=== PATIENT | female | born 1995 | race Caucasian/White ===

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

== ENCOUNTER 2017-06-11 11:02 | Emergency (ER) | payer OTHER ==
--- NOTE | 2017-06-11 12:06 | UC ---
Skin Complaint HPI - HPI Summary HPI Summary: 21 y/o female presents to the urgent care c/o b/l legs with a rash taht itches a lot and painful to touch taht started 3 days ago over night. PT just realized that now she has more in her LF elbow and back. She states she shave her legs last Sunday. Then Sunday morning she noticed the red bumps, she was itching all day. Pt has not taking anything to alleviate symptoms. Pt denies fever, SOB , chest pain, N/V/D, abdominal pain, CONTE, Hx of MRSA. - History of Current Complaint Time Seen by Provider: 06/11/17 12:02 Stated Complaint: SKIN COMPLAINT Hx Obtained From: Patient Hx Last Menstrual Period: has implanon ?: No Onset/Duration: Gradual Onset, Lasting Days - 3 days, Still Present Skin Exposure Onset/Duration: Days Ago - 3 Timing: Constant Onset Severity: Mild Current Severity: Moderate Pain Intensity: 2 Pain Scale Used: 0-10 Numeric Location: Diffuse - B.L legs, LF elbow and back Character: Swelling, Pruritus, Redness, Raised Aggravating Factor(s): Touch Alleviating Factor(s): Nothing Associated Signs & Symptoms: Positive: Tenderness. Negative: Nausea, Vomiting, Numbness, Fever Related History: Possible Reaction to: Insect - Allergy/Home Medications Allergies/Adverse Reactions: Allergies Allergy/AdvReac Type Severity Reaction Status Date / Time No Known Allergies Allergy Verified 06/11/17 12:04 Review of Systems Skin: Rash - red and raised on B/L legs, LF elbow and back Eyes: Negative ENT: Negative Respiratory: Negative Cardiovascular: Negative Gastrointestinal: Negative Genitourinary: Negative Motor: Negative Neurovascular: Negative Musculoskeletal: Negative Neurological: Negative Psychological: Negative Is Patient Immunocompromised?: No All Other Systems Reviewed And Are Negative: Yes PMH/Surg Hx/FS Hx/Imm Hx Previously Healthy: Yes - PT denies PMHX - Surgical History Surgical History: None - Family History Known Family History: Positive: Hypertension Family History: Hypothyrodism - Social History Occupation: Employed Full-time Lives: With Family Alcohol Use: Rare Substance Use Type: None Substance Use Comment - Amount & Last Used: 02/13/15 Smoking Status (MU): Light Every Day Tobacco Smoker Amount Used/How Often: 1/2 pack Length of Time of Smoking/Using Tobacco: 1 year Have You Smoked in the Last Year: No - Immunization History Most Recent Influenza Vaccination: none Vaccination Up to Date: Yes Physical Exam Triage Information Reviewed: Yes - Additional Comments Vital Signs Reviewed: Yes Eyes: Positive: Conjunctiva Clear - PERRLA, EOMI ENT: Positive: Normal ENT inspection, Hearing grossly normal, Pharynx normal, TMs normal Neck: Positive: Supple, Nontender, No Lymphadenopathy Respiratory: Positive: Chest nontender, Lungs clear, Normal breath sounds Cardiovascular: Positive: RRR, No Murmur, Pulses Normal Abdomen Description: Positive: Nontender, No Organomegaly, Soft. Negative: CVA Tenderness (R), CVA Tenderness (L) Bowel Sounds: Positive: Present Musculoskeletal: Positive: Strength Intact, ROM Intact, No Edema Neurological Exam: Normal Psychological Exam: Normal Skin: Positive: rashes B/l legs with multiple scattered erythematous papules some with central yellowish discharged, some with signs of scoriation, tender to touch, warm and raised. Similar papules in the LF elbow and back Course/Dx - Course Course Of Treatment: 21 y/o female presents to the urgent care c/o b/l legs with a rash taht itches a lot and painful to touch taht started 3 days ago over night. PT just realized that now she has more in her LF elbow and back. She states she shave her legs last Sunday. Then Sunday morning she noticed the red bumps, she was itching all day. Pt has not taking anything to alleviate symptoms. Pt denies fever, SOB, chest pain, N/V/D, abdominal pain, CONTE, Hx of MRSA.HX obtained. Pt with unspecified rash. Probably bed bugs with bacterial co- infection since some papules have yellowish drainage. Pt Rx Keflex PO, Benadryl Po for pruritus. Advised to wash all clothing and beddings with hot water. Pt educated on bed bugs. Pt understood and agreed with plan of care. - Differential Diagnoses - Skin Complaint Differential Diagnoses: Abscess, Cellulitis, Contact Dermatitis, Eczema, Local Allergic Reaction, MRSA, Tick Born Illness, Urticaria, Other - bed bugs, folliculitis - Diagnoses Provider Diagnoses: 1- Unpecified rash Discharge - Discharge Plan Condition: Stable Disposition: HOME Prescriptions: Bacitracin OINTMENT* 1 applic TOPICAL TID #1 tube Cephalexin CAP* [Keflex CAP*] 500 mg PO TID #21 cap diPHENhydraMINE PO* [Benadryl PO 25 MG TAB*] 25 mg PO TID PRN #15 tab PRN Reason: Pruritis Patient Education Materials: Acute Rash (ED), Bed Bugs (ED) Forms: *Work Release Referrals: JOSE Sidhu [Primary Care Provider] - If Needed Additional Instructions: 1-Please apply medication as directed and take full course of antibiotic for the the co-infected rash 2-Please wash all clothing and beddings with hot water. 3-If symptoms do not improve or worsen please f/u with your PCP or return to the urgent care for further evaluation and treatment.
[2017-06-11 12:10] VITALS: BP 123/79
== END 2017-06-11 12:38 | disposition home or self-care (01) ==
LOC: UCCORT 11:02
DX: R21 Rash and other nonspecific skin eruption (principal); Z87.891 Personal history of nicotine dependence
CPT/HCPCS: 99212; G0463

== ENCOUNTER 2017-06-19 19:20 | Emergency (ER) | payer OTHER ==
[2017-06-19 20:08] VITALS: BP 124/64
--- NOTE | 2017-06-19 20:14 | UC ---
Ear Complaint HPI - HPI Summary HPI Summary: 21 y/o female presents to the urgent care c/o LF ear fullness, dull pain and decrease hearing since yesterday. Pt states pain is mild 3/10. Pt denies sore throat, cough, CONTE, SOB, chest pain N/V/D, dizziness. CONTE, tinnitus. She states she was recently here for a rash which already resolved, She finished taking the ABX about 2 days ago. She has not taking anything to alleviate symptoms. - History of Current Complaint Chief Complaint: UCEar Stated Complaint: EAR COMPLAINT Time Seen by Provider: 06/19/17 20:13 Hx Obtained From: Patient Hx Last Menstrual Period: has nexplanon ?: No Onset/Duration: Gradual Onset, Lasting Days - 2 days Severity Initially: Mild Severity Currently: Mild Pain Intensity: 3 Pain Scale Used: 0-10 Numeric Aggravating Factors: Other - touch Alleviating Factors: Heat Associated Signs/Symptoms: Positive: Hearing Loss - Allergies/Home Medications Allergies/Adverse Reactions: Allergies Allergy/AdvReac Type Severity Reaction Status Date / Time No Known Allergies Allergy Verified 06/11/17 12:04 PMH/Surg Hx/FS Hx/Imm Hx Previously Healthy: Yes - Pt denies PMHX - Surgical History Surgical History: None - Family History Known Family History: Positive: Hypertension Family History: Hypothyrodism - Social History Occupation: Employed Full-time Lives: With Family Alcohol Use: None Substance Use Type: None Substance Use Comment - Amount & Last Used: 02/13/15 Smoking Status (MU): Light Every Day Tobacco Smoker Type: Cigarettes Amount Used/How Often: <1/2 PPD Length of Time of Smoking/Using Tobacco: 1 year Have You Smoked in the Last Year: No - Immunization History Most Recent Influenza Vaccination: none Vaccination Up to Date: Yes Review of Systems Constitutional: Negative Skin: Negative Eyes: Negative ENT: Ear Ache - Left with fullness and hearing loss Respiratory: Negative Cardiovascular: Negative Gastrointestinal: Negative Genitourinary: Negative Motor: Negative Neurovascular: Negative Musculoskeletal: Negative Neurological: Negative Psychological: Negative Is Patient Immunocompromised?: No All Other Systems Reviewed And Are Negative: Yes Physical Exam Triage Information Reviewed: Yes Vital Signs: Initial Vital Signs Temp 98.4 F 06/19/17 20:03 Pulse 89 06/19/17 20:03 Resp 16 06/19/17 20:03 BP 124/64 06/19/17 20:03 Pulse Ox 100 06/19/17 20:03 - Additional Comments Vital signs: reviewed General: weel developed well nourished female w/o any aooarent distress. Skin: [place], warm and dry, B/L arm rash resolving HEENT: -Head: atraumatic, non tender; no scalp dermatitis. -Eyes: sclera and conjunctiva clear, PERRLA, EOMI -Ears: no pre- or postauricular lymphadenopathy or erythema; LF external ear canal with erythema and yellowish purulent discharge, pinna tenderness on palpation, Rt TM WNL, LF external ear canal clear and LF TM WNL. TMs normal w/ out bulging or retraction. Good light reflex. No fluid level, vesicles, or bullae. No perforation. -Nose/Face: erythematous and edematous nasal mucosa with clear rhinorrhea, no frontal or maxillary sinus tender to palpation. -Mouth/Throat: Mucous membrane moist, posterior pharynx clear, no erythema or exudates. Neck: supple, FROM, nontender, no lymphadenopathy, no meningismus. Chest: Clear to auscultation, normal breath sounds Abd: soft, Bowel sounds active, Nontender. Back: no spinal or CVAT Neuro: A&O x4, GCS 15, no focal neuro deficits, normal behavior for age. Ear Complaint Course/Dx - Course Course Of Treatment: 21 y/o female presents to the urgent care c/o LF ear fullness, dull pain and decrease hearing since yesterday. Pt states pain is mild 3/10. Pt denies sore throat, cough, CONTE, SOB, chest pain N/V/D, dizziness. CONTE, tinnitus. She states she was recently here for a rash which already resolved, She finished taking the ABX about 2 days ago. She has not taking anything to alleviate symptoms.Hx obtained. Pt with a left otitis externa on examination. Pt Rx. Cortisporin otic drops. Advised to take ibuprofen PO OTC for pain. If symptoms do not improve or worsen to return to the urgent care or f /u with PCP for further management. Pt understood and agreed with D/C instructions. - Differential Dx/Diagnosis Differential Diagnosis/HQI/PQRI: Barotrauma, Cerumen Impaction, Mastoiditis, Otitis Externa, Otitis Media, Perforated TM, URI, Other - BPPV Provider Diagnoses: 1- Left otitis externa Discharge - Discharge Plan Condition: Stable Disposition: HOME Prescriptions: Neomyc/Polym/HC 1% OTIC SUSP* [Cortisporin Otic Susp 1%*] 4 drop LEFT EAR TID # 1 btl Patient Education Materials: Otitis Externa (ED) Referrals: JOSE Sidhu [Primary Care Provider] - If Needed Additional Instructions: 1-Please apply otic antibiotic on your LF ear as directed. 2-Take ibuprofen PO q6-8hrs for 2 days after meals for pain and decrease inflammation 3-If symptoms do not improve or worsen please f/u with your PCP or return to the urgent care for further evaluation and treatment.
== END 2017-06-19 20:42 | disposition home or self-care (01) ==
LOC: UCCORT 19:20
DX: H60.92 Unspecified otitis externa, left ear (principal); F17.210 Nicotine dependence, cigarettes, uncomplicated
CPT/HCPCS: 99212; G0463

== ENCOUNTER 2017-10-15 12:22 | Emergency (ER) | payer OTHER ==
[2017-10-15 15:51] VITALS: BP 130/82
--- NOTE | 2017-10-15 15:51 | ED ---
Throat Pain/Nasal Congestion - HPI Summary HPI Summary: 22 yr old female with the complaint of nasal congestion, cough and tired. Mild 4/10 frontal headache. No neck stiffness. No fever. The patient has been ill for a couple of days. No fever or chills. The patient has had other people with cough and cold symptoms in the household. No other complaints. - History of Current Complaint Chief Complaint: UCRespiratory Time Seen by Provider: 10/15/17 15:36 - Allergies/Home Medications Allergies/Adverse Reactions: Allergies Allergy/AdvReac Type Severity Reaction Status Date / Time No Known Allergies Allergy Verified 10/15/17 15:50 PMH/Surg Hx/FS Hx/Imm Hx Endocrine/Hematology History: Denies: Hx Diabetes Respiratory History: Denies: Hx Asthma, Hx Chronic Obstructive Pulmonary Disease (COPD) Infectious Disease History: No Infectious Disease History: Denies: Traveled Outside the [place] in Last 30 Days - Family History Known Family History: Positive: Hypertension Family History: Hypothyrodism - Social History Alcohol Use: Rare Substance Use Type: Reports: None Substance Use Comment - Amount & Last Used: 02/13/15 Smoking Status (MU): Heavy Every Day Tobacco Smoker Type: Cigarettes Amount Used/How Often: 1/2 PPD Length of Time of Smoking/Using Tobacco: since age 19 Have You Smoked in the Last Year: No Review of Systems Constitutional: Negative Eyes: Negative ENT: Negative Positive: Cough Gastrointestinal: Negative Musculoskeletal: Negative Skin: Negative All Other Systems Reviewed And Are Negative: Yes Physical Exam Triage Information Reviewed: Yes Vital Signs On Initial Exam: Initial Vitals Temp Pulse Resp BP Pulse Ox 97.8 F 97 16 130/82 100 10/15/17 15:43 10/15/17 15:43 10/15/17 15:43 10/15/17 15:43 10/15/17 15:43 Vital Signs Reviewed: Yes Appearance: Positive: Well-Appearing, No Pain Distress Skin: Positive: Warm Eyes: Positive: EOMI ENT: Positive: Pharynx normal, Nasal congestion, TMs normal Neck: Positive: Nontender Respiratory/Lung Sounds: Positive: Clear to Auscultation, Breath Sounds Present Cardiovascular: Positive: RRR. Negative: Murmur Abdomen Description: Positive: Nontender Musculoskeletal: Positive: Strength/ROM Intact Neurological: Positive: Sensory/Motor Intact, Alert, Oriented to Person Place, Time, CN Intact II-III Psychiatric: Positive: Normal - Boy Coma Scale Best Eye Response: 4 - Spontaneous Best Motor Response: 6 - Obeys Commands Best Verbal Response: 5 - Oriented Coma Scale Total: 15 Diagnostics - Vital Signs Vital Signs Temp Pulse Resp BP Pulse Ox 10/15/17 15:43 97.8 F 97 16 130/82 100 - Laboratory Lab Statement: Any lab studies that have been ordered have been reviewed, and results considered in the medical decision making process. EENT Course/Dx - Course Course Of Treatment: 22 yr old female with cough, runny nose. URI sympotms. Plan dc home. - Diagnoses Provider Diagnoses: Upper respiratory infection Discharge - Discharge Plan Condition: Good Disposition: HOME Patient Education Materials: Upper Respiratory Infection (ED) Forms: *Work Release Referrals: Non Staff,Doctor [Primary Care Provider] - [facility] [Outside]
== END 2017-10-15 15:58 | disposition home or self-care (01) ==
LOC: UCCORT 12:22
DX: J06.9 Acute upper respiratory infection, unspecified (principal); F17.210 Nicotine dependence, cigarettes, uncomplicated
CPT/HCPCS: 99211; G0463

== ENCOUNTER 2018-03-13 11:02 | Emergency (ER) | payer OTHER ==
--- OUTSIDE RECORDS SUMMARY | 2018-03-13 11:30 | XMS REPORT ---
:1995 External Reference #:[id number] [facility] Address [address] [place] [id number] Phone [phone] Care Team Providers Name Role Phone Katelyn Woody MD Primary Care Physician Unavailable Payers Type Date Identification Numbers Payment Provider Subscriber Commercial Policy Number: [id number] [facility] [employer] Name: [employer] Plan [address] PayID: [id number] [place] [address] Medicaid Effective: 2018 PayID: [id number] Medicaid Pe ([facility]) [employer] Expires: 2018 [address] [place] [address] Problems Description No Information Family History Date Family Member(s) Problem(s) Comments General Great Gma throat cancer and Alzheimers (both sides) Father Alive Mother Alive Mother Dislocated discs in back Mother migraines Mother "lumpy breasts" (always begnign) Mother Not Known - Adopted Social History Type Date Description Comments Education Highest level completed, 1 year of college Marital Status Legal Status: Never Cigars Never Smoked Cigars Pipe Never Smoked A Pipe Smokeless Tobacco Never Used Smokeless Tobacco ETOH Use Rarely consumes alcohol Smoking Heavy tobacco smoker (more than 10 cigarettes/day) Recreational Drug Use Denies Drug Use Recreational Drug Use Teaching provided regarding Naloxone/Narcan Training Available At [facility] Tattoo/Piercing Tattoos professionally done Condom Use Never Allergies, Adverse Reactions, Alerts Date Description Reaction Status Severity Comments 03/11/2018 NKDA active Medications Medication Date Status Form Strength Qnty SIG Indications Ordering Provider Ortho Micronor 03/11/20 Active Tablets 0.35mg 84tabs take one Z30.011 In Whan Oh, 18 table MD every day Ortho Micronor 03/11/20 Active Tablets 0.35mg 28tabs take one Z30.011 In jacob Moy, 18 table every day No Active 03/11/20 Hx Unknown Medications - 03/11/20 18 Medications Administered in Office Medication Date Status Form Strength Qnty SIG Indications Ordering Provider Contraceptive Injection Angela Pills 2017 Arcadio Adamson ENGINEERING VICE PRESIDENT Vital Signs Date Vital Result Comment 03/11/2018 BP Systolic 119 mmHg BP Diastolic 68 mmHg BP Systolic Recheck 124 mmHg post nexplanon removal BP Diastolic Recheck 70 mmHg post nexplanon removal Height 62 inches 5'2" Weight 165.00 lb BMI (Body Mass Index) 30.2 kg/m2 Results Description No Information Procedures Date CPT Code Description Status 03/11/2018 77074 Removal, Non-Biodegradable Drug Delivery Implant Completed Plan of Care Future Appointment(s):06/14/2018 11:30 am - ENGINEERING VICE PRESIDENT at [facility]03/25/2018 8:30 am - RN Schedule at [facility]03/11/2018 - Angela Adamson NPZ30.46 Enctr srvlnc implantable subdermal contraceptiveFollow up:2 weeks for uptZ30.011 Encounter for initial prescription of contraceptive pillsNew Medication:Ortho Micronor 0.35 mgOrtho Micronor 0.35 mgComments:Pt aware she needs a back up method or abstain for 7 days. Accepts risk of due to UPIC last night. Will return in 2 weeks for a UPT and in 3 months for Method check. She will also contiue alvin with us from Dr. Wright's office due to change in insurance.She will consider follow with Neurology for her CONTE and is they clear her for GREENHOUSE STAFF's we can consider changing from Micronor to GREENHOUSE STAFF's Pt educated that the OCP she is on has a similar hormone that is used in the Nexplanon and this may continueto cause her to have frequent HAFollow up:3 months
[2018-03-13 11:57] VITALS: BP 126/82
--- NOTE | 2018-03-13 12:18 | UC ---
Skin Complaint HPI - HPI Summary HPI Summary: She had implenon removed about two days ago and she had local lidocaine and she was very tense during the procedure. She developed pain in the shoulder and arm later that night. No fevers or chills. - History of Current Complaint Chief Complaint: UCUpperExtremity Time Seen by Provider: 03/13/18 11:57 Stated Complaint: SKIN COMPLAINT Hx Obtained From: Patient Hx Last Menstrual Period: HAS NOT HAD A PERIOD IN 3 YEARS. WAS ON NEXPLMON Onset/Duration: Gradual Onset, Lasting Days Skin Exposure Onset/Duration: Days Ago Onset Severity: Moderate Current Severity: Moderate Pain Intensity: 6 Location: Diffuse - She says the whole arm hurts including shoulder. Character: Pain Aggravating Factor(s): Touch Alleviating Factor(s): Nothing Associated Signs & Symptoms: Positive: Tenderness. Negative: Nausea, Vomiting, Shivering, Fever, Chills, Rash, Drainage, Bruising - Allergy/Home Medications Allergies/Adverse Reactions: Allergies Allergy/AdvReac Type Severity Reaction Status Date / Time No Known Allergies Allergy Verified 03/13/18 11:48 Home Medications: Home Medications Norethindrone [Ortho Micronor] 0.35 mg PO DAILY 03/13/18 [History Confirmed 07/21] Review of Systems Skin: Other All Other Systems Reviewed And Are Negative: Yes PMH/Surg Hx/FS Hx/Imm Hx Previously Healthy: No - Surgical History Surgical History: None - Family History Known Family History: Positive: Hypertension Family History: Hypothyrodism - Social History Alcohol Use: Rare Substance Use Type: None Substance Use Comment - Amount & Last Used: 02/13/15 Smoking Status (MU): Heavy Every Day Tobacco Smoker Type: Cigarettes Amount Used/How Often: 1/2 PPD Length of Time of Smoking/Using Tobacco: since age 19 Have You Smoked in the Last Year: No Household Exposure Type: Cigarettes - Immunization History Most Recent Influenza Vaccination: none Vaccination Up to Date: Yes Physical Exam Triage Information Reviewed: Yes Appearance: Well-Appearing, Well-Nourished, Obese Vital Signs: Initial Vital Signs Temp 99.2 F 03/13/18 11:51 Pulse 88 03/13/18 11:51 Resp 18 03/13/18 11:51 BP 126/82 03/13/18 11:51 Pulse Ox 100 07/11/18 11:51 Vital Signs Reviewed: Yes Eye Exam: Normal Eyes: Positive: Conjunctiva Clear ENT: Positive: Normal ENT inspection Neck: Positive: Supple, Nontender, No Lymphadenopathy Respiratory: Positive: Lungs clear, Normal breath sounds, No respiratory distress, No accessory muscle use. Negative: Respiratory distress, Decreased breath sounds, Accessory muscle use, Crackles, Rhonchi, Stridor Cardiovascular: Positive: No Murmur. Negative: Tachycardia Abdomen Description: Positive: No Organomegaly, Soft. Negative: Distended, Guarding Musculoskeletal: Positive: Strength Intact, ROM Intact, No Edema Neurological: Positive: Alert, Muscle Tone Normal. Negative: Fatigued Psychological: Positive: Age Appropriate Behavior Skin: Positive: Other - site of removal is not swollen or red and there is no discharge. There is some diffuse tenderness around the site. Full ROM of the joints. Pulses distally intact. NO signs of DVT such as swelling or venous tenderness. Course/Dx - Course Course Of Treatment: diffuse pain after superficial extraction of implenon. No signs of Neuro vascular complications. - Diagnoses Provider Diagnoses: possible wound infection. Discharge - Sign-Out/Discharge Documenting (check all that apply): Patient Departure - Discharge Plan Condition: Good Disposition: HOME Prescriptions: Sulfamethox/Trimethoprim DS* [Bactrim DS 800/160 TAB*] 1 tab PO BID #14 tab Patient Education Materials: Acute Wound Care (ED) Referrals: Katelyn Woody MD [Primary Care Provider] - Additional Instructions: Return for any worsening, swelling, fevers or chills. - Billing Disposition and Condition Condition: GOOD Disposition: Home
== END 2018-03-13 12:18 | disposition home or self-care (01) ==
LOC: UCCORT 11:02
DX: M25.519 Pain in unspecified shoulder (principal); M79.603 Pain in arm, unspecified; F17.210 Nicotine dependence, cigarettes, uncomplicated
CPT/HCPCS: 99212; G0463

== ENCOUNTER 2018-04-24 09:31 | Emergency (ER) | payer OTHER ==
[2018-04-24 10:16] VITALS: BP 138/77
--- NOTE | 2018-04-24 10:43 | UC ---
Skin Complaint HPI - HPI Summary HPI Summary: Patient presents with 3 days of progressive swelling to the right upper lid. Patient states mild discomfort with palpation. No vision changes. No fevers or chills. Patient states she had a small pimple that she pinch proceeding this. Patient previously has had a large preseptal cellulitis was concerned this was given the same. Patient without ear pain. Patient withoutpain. Patient is not immunocompromised. Patient has not put anything on the wound. Patient's tetanus is up-to-date. No history of MRSA Medications reviewed this visit - History of Current Complaint Chief Complaint: UCEye Time Seen by Provider: 04/24/18 10:34 Stated Complaint: RIGHT EYE COMPLAINT Hx Obtained From: Patient Hx Last Menstrual Period: >3 years ago (Nexplanon removed last month) ?: No Onset/Duration: Gradual Onset Pain Intensity: 6 - Allergy/Home Medications Allergies/Adverse Reactions: Allergies Allergy/AdvReac Type Severity Reaction Status Date / Time No Known Allergies Allergy Verified 04/24/18 10:10 Home Medications: Home Medications Acetaminophen TAB* [Tylenol TAB*] 650 mg PO Q4H PRN 04/24/18 [History Confirmed 04/24/18] Review of Systems Constitutional: Negative Skin: Other - right eye Eyes: Other - lid edema All Other Systems Reviewed And Are Negative: Yes PMH/Surg Hx/FS Hx/Imm Hx Previously Healthy: Yes - Surgical History Surgical History: None - Family History Known Family History: Positive: Hypertension Family History: Hypothyrodism - Social History Occupation: Employed Full-time Lives: With Family Alcohol Use: Rare Substance Use Type: None Substance Use Comment - Amount & Last Used: 02/13/15 Smoking Status (MU): Heavy Every Day Tobacco Smoker Type: Cigarettes Amount Used/How Often: 1/2 PPD Length of Time of Smoking/Using Tobacco: since age 19 Have You Smoked in the Last Year: No Household Exposure Type: Cigarettes - Immunization History Most Recent Influenza Vaccination: none Vaccination Up to Date: Yes Physical Exam - Summary Physical Exam Summary: Vital Signs Reviewed: Yes A+Ox3, no distress Eyes: Conjunctiva Clear, TORI. EOM intact and full Pt with mild erythema and edema of upper lid. no extension to nose or lateral face no photophobia pt with small piple scab lateral aspect of erythema. no fluctuance no induration ENT: Hearing grossly normal TM x 2 clear, mmoist, uvula midline, no exudate, no erythema Neck: Positive: Supple Respiratory: Positive: No respiratory distress, No accessory muscle use + CTA throughout no w/r Cardiovascular: RRR nl s1, s2 no m/r CBT <2 sec abd soft + BS nt/nd no guarding, no distension Musculoskeletal Exam: ADAMS x 4 without difficulty Strength Intact, ROM Intact Neurological: Positive: Alert, + sensation throughout Psychological: Positive: Normal Response To Family Skin: Positive: no rash, no ecchymosis see eye Triage Information Reviewed: Yes Vital Signs: Initial Vital Signs Temp 98.1 F 04/24/18 10:06 Pulse 99 04/24/18 10:06 Resp 17 04/24/18 10:06 BP 138/77 04/24/18 10:06 Pulse Ox 100 04/24/18 10:06 Course/Dx - Course Course Of Treatment: Patient presents with progressive erythema and mild edema of her right upper lip. Patient with a history of sialitis in the same area. Patient currently with a small scab lesion with surrounding erythema of the upper lip. No pain with eye movement. I reexamined exam is normal and not concerning. Recommend moist heat. Antibiotics. Motrin Tylenol. Strict return precautions. Patient comfortable in agreement with plan. - Diagnoses Provider Diagnoses: preseptal cellulitis early Discharge - Sign-Out/Discharge Documenting (check all that apply): Patient Departure All imaging exams completed and their final reports reviewed: No Studies - Discharge Plan Condition: Stable Disposition: HOME Prescriptions: Amoxicillin/Clavulanate TAB* [Augmentin TAB 875*] 875 mg PO BID #20 tab Patient Education Materials: Periorbital Cellulitis in Adults (ED) Forms: *Work Release Referrals: Katelyn Woody MD [Primary Care Provider] - Additional Instructions: - Take antibiotics as prescribed until gone - okay to alternate ibuprofen (Advil, Motrin) and tylenol every 3 hours for pain. take with food - okay to apply a warm soak to your face - if you develop increased pain, swelling, reddness, fever or any other concerns it is recommend you return or go to the emergency department - Billing Disposition and Condition Condition: STABLE Disposition: Home
== END 2018-04-24 11:12 | disposition home or self-care (01) ==
LOC: UCCORT 09:31
DX: L03.213 Periorbital cellulitis (principal); F17.210 Nicotine dependence, cigarettes, uncomplicated
CPT/HCPCS: 84702; 99212; G0463

== ENCOUNTER 2018-05-05 15:03 | Emergency (ER) | payer OTHER ==
[2018-05-05 16:58] VITALS: BP 116/79
--- NOTE | 2018-05-05 17:02 | UC ---
Throat Pain/Nasal Skyler HPI - HPI Summary HPI Summary: 22 y/o female presents to the urgent care c/o sore throat , headache and fatigue for the past 2 days. Pt was recently exposed to strep from her niece. Pain w/ swallowing is 5/10. She has taking Tylenol PO to alleviate symptoms. Pt denies fever, SOB, chest pain, abdominal pain, N/V/D. Pt is UTD w/ all vaccines for her age. - History of Current Complaint Chief Complaint: UCGeneralIllness Stated Complaint: ST Time Seen by Provider: 05/05/18 16:59 Hx Obtained From: Patient Hx Last Menstrual Period: 04/26/18 ?: No Onset/Duration: Gradual Onset, Lasting Days - 3 days, Still Present, Worse Since - today Severity: Moderate Pain Intensity: 5 Pain Scale Used: 0-10 Numeric Cough: Nonproductive - dry cough Associated Signs & Symptoms: Positive: Dysphagia. Negative: Fever - Epiglottits Risk Factors Epiglottis Risk Factors: Negative - Allergies/Home Medications Allergies/Adverse Reactions: Allergies Allergy/AdvReac Type Severity Reaction Status Date / Time No Known Allergies Allergy Verified 04/24/18 10:10 PMH/Surg Hx/FS Hx/Imm Hx Previously Healthy: Yes GI/ History: Gastroesophageal Reflux Neurological History: Migraine - Surgical History Surgical History: None - Family History Known Family History: Positive: Hypertension Family History: Hypothyrodism - Social History Occupation: Employed Full-time Lives: With Family Alcohol Use: Rare Substance Use Type: None Substance Use Comment - Amount & Last Used: 02/13/15 Smoking Status (MU): Heavy Every Day Tobacco Smoker Type: Cigarettes Amount Used/How Often: 1/2 PPD Length of Time of Smoking/Using Tobacco: since age 19 Have You Smoked in the Last Year: No Household Exposure Type: Cigarettes - Immunization History Most Recent Influenza Vaccination: none Vaccination Up to Date: Yes Review of Systems Constitutional: Negative Skin: Negative Eyes: Negative ENT: Sore Throat Respiratory: Cough - dry Cardiovascular: Negative Gastrointestinal: Negative Genitourinary: Negative Motor: Negative Neurovascular: Negative Musculoskeletal: Negative Neurological: Headache - mild Psychological: Negative Is Patient Immunocompromised?: No All Other Systems Reviewed And Are Negative: Yes Physical Exam - Summary Physical Exam Summary: VITAL SIGNS: Reviewed. GENERAL: Patient is a well developed and nourished female who is sitting comfortable in the examining table. Patient is not in any acute respiratory distress. HEAD AND FACE: No signs of trauma. No ecchymosis, hematomas or skull depressions. No sinus tenderness. EYES: PERRLA, EOMI x 2, No injected conjunctiva, no nystagmus. No photophobia. EARS: Hearing grossly intact. Ear canals and tympanic membranes are within normal limits. MOUTH: Positive pharynx with erythema, no exudates, no palatal petechiae.Mild B /L tonsillar enlargement with no exudate. Uvula in midline. NECK: Supple, trachea is midline, Positive anterior cervical lymphadenopathy, no JVD, no carotid bruit, no c-spine tenderness, neck with full ROM. No meningeal signs, no Kernig's or brudzinskis signs. CHEST: Symmetric, no tenderness at palpation LUNGS: Clear to auscultation bilaterally. No wheezing or crackles. CVS: Regular rate and rhythm, S1 and S2 present, no murmurs or gallops appreciated. ABDOMEN: Soft, non-tender. No signs of distention. No rebound no guarding, and no masses palpated. Bowel sounds are normal. EXTREMITIES: FROM in all major joints, no edema, no cyanosis or clubbing. NEURO: Alert and oriented x 3. No acute neurological deficits. Speech is normal and follows commands. SKIN: Dry and warm Triage Information Reviewed: Yes Vital Signs: Initial Vital Signs Temp 97.3 F 05/05/18 16:52 Pulse 80 05/05/18 16:52 Resp 16 05/05/18 16:52 BP 116/79 05/05/18 16:52 Pulse Ox 100 05/05/18 16:52 Throat Pain/Nasal Course/Dx - Course Course Of Treatment: 22 y/o female presents to the urgent care c/o sore throat , headache and fatigue for the past 2 days. Pt was recently exposed to strep from her niece. Pain w/ swallowing is 5/10. She has taking Tylenol PO to alleviate symptoms. Pt denies fever, SOB, chest pain, abdominal pain, N/V/D. Pt is UTD w/ all vaccines for her age. Hx obtained. Rapid strep ordered, result: negative. Viral pharyngitis.Pt w/ PMHX of GERD. Pt RX Omeprazole PO and educated on dietary modifications. Advised to take Tylenol PO to alleviates symptoms of pain and swelling. Advised on hand washing to avoid spreading. Pt advised to rest, eat well and avoid strenuous exercise. If symptoms do not improve or worsen advised to return to the urgent care or f/u with her PCP for further evaluation and treatment. Pt understood and agreed w/ plan of care. - Differential Dx/Diagnosis Differential Diagnosis/HQI/PQRI: Laryngitis, Otitis Media, Pharyngitis, Sinusitis, URI Provider Diagnoses: 1-Viral pharyngitis. 2- Gerd Discharge - Sign-Out/Discharge Documenting (check all that apply): Patient Departure All imaging exams completed and their final reports reviewed: No Studies - Discharge Plan Condition: Stable Disposition: HOME Prescriptions: Omeprazole CAP* [Prilosec CAP* 20 MG] 20 mg PO DAILY #30 cap. Patient Education Materials: Pharyngitis (ED), Gastroesophageal Reflux Disease (ED) Forms: *Work Release Referrals: Katelyn Woody MD [Primary Care Provider] - 3 Days Additional Instructions: 1-Please take Tylenol PO q6-8hrs prn as instructed after meals to alleviate pain and swelling. Increase fluid intake, eat well, rest and avoid strenuous exercise 2-Please take Omeprazole PO as directed to alleviate symptoms. Avoid spicy food , chocolates, citric fruits, tomato sauce, etc. Avoid long periods of time w/o eating. increase fluid and eat soft meals until symptoms improve. 3-If symptoms do not improve or worsen please return to the urgent care or f/u with your PCP for further evaluation and treatment. - Billing Disposition and Condition Condition: STABLE Disposition: Home
== END 2018-05-05 17:34 | disposition home or self-care (01) ==
LOC: UCCORT 15:03
DX: J02.8 Acute pharyngitis due to other specified organisms (principal); K21.9 Gastro-esophageal reflux disease without esophagitis; F17.210 Nicotine dependence, cigarettes, uncomplicated
CPT/HCPCS: 87651; 99212; G0463